=== PATIENT | male | born 1995 | race Asian ===

== ENCOUNTER 2018-11-04 11:26 | Emergency (ER) | payer SELFPAY ==
[~2018-11-04] VITALS: Ht 177.8 cm; Wt 79.4 kg
[2018-11-04 11:29] VITALS: BP 142/87; Ht 177.8 cm; Wt 79.4 kg
== END 2018-11-04 12:01 | disposition home or self-care (01) ==
LOC: ED 11:26
DX: L98.9 Disorder of the skin and subcutaneous tissue, unspecified (principal); K13.79 Other lesions of oral mucosa